=== PATIENT | female | born 1970 ===

== ENCOUNTER 2024-06-10 09:57 | Outpatient (CLI) | payer OTHER, SELFPAY ==
--- NOTE | 2024-06-10 10:09 | MM_ITS ---
WS: [id number] BILATERAL 3D TOMOSYNTHESIS DIGITAL SCREENING MAMMOGRAPHY WITH CAD CLINICAL INFORMATION: SCREENING HISTORY: Screening mammogram. No current complaints. COMPARISON: Baseline TECHNIQUE: Bilateral CC and MLO views. FINDINGS: Scattered fibroglandular densities bilaterally. No suspicious focal mass, asymmetry, calcifications, or architectural distortion. No evidence of malignancy. A few tiny incidental punctate calcifications . MM/[place] [id number] IMPRESSION: BI-RADS: 2-Benign FOLLOW UP: 1 Year Follow-up Recommend return to annual screening mammography.
== END 2024-06-10 09:58 | disposition home or self-care (01) ==
LOC: RAD 10:02
PROVIDERS: PCP Nurse Practitioner Family; Visit Provider Nurse Practitioner Family
DX: Z12.31 Encounter for screening mammogram for malignant neoplasm of breast (principal); R92.323 Mammographic fibroglandular density, bilateral breasts
CPT/HCPCS: 77063; 77067

== ENCOUNTER 2025-09-28 18:42 | Emergency (ER) | payer MEDICAID, SELFPAY ==
[2025-09-28 18:50] VITALS: BP 134/83; PULSE 84; RESP 17; TEMP 36.8; O2SAT 98; BMI 38.2
[2025-09-28 20:06] LABS: Hematocrit 35.5 % (36-47); Hemoglobin 11.10 g/dL (11.27-16.99); Mean Corpuscular HGB Conc 31.3 g/dL (30-55); Mean Corpuscular Hemoglobin 26.3 pg (27-33); Mean Corpuscular Volume 84.1 fl (85-98); Nucleated Red Blood Cells % 0 %; Platelet Count 450 10^3/cmm (157-399); Red Blood Count 4.22 10^6/uL (3.85-5.65); White Blood Count 10.92 10^3/uL (3.29-11.43)
[2025-09-28 20:30] LABS: Alanine Aminotransferase 22 U/L (0-33); Albumin Level 4.1 g/dL (3.5-5.2); Alkaline Phosphatase 86 U/L (35-105); Anion Gap 10.7 (5-19); Aspartate Amino Transferase 16 U/L (0-32); Blood Urea Nitrogen 10 mg/dL (6-20); Calcium 9.3 mg/dL (8.5-10.5); Carbon Dioxide 31 mmol/L (22-29); Chloride 103 mmol/L (98-107); Globulin 3.6 g/dL (1.3-4.6); Glucose 139 mg/dL (65-115); Lactic Sepsis W/Reflex 1.0 mmol/L (0.5-2.2); Lipase 54 U/L (13-60); Osmolality Calculated 293 mOsm/kg (285-295); Potassium 3.7 mmol/L (3.5-5.1); Sodium 141 mmol/L (136-145); Total Protein 7.7 g/dL (6.6-8.7)
--- NOTE | 2025-09-28 20:30 | CTR_ITS ---
PROCEDURE INFORMATION: Exam: CT Abdomen And Pelvis With Contrast Exam date and time: 09/28/2025 10:10 PM Age: 55 years old Clinical indication: Abdominal pain; Prior surgery; Surgery date: 6+ months; Surgery type: Tubal; Additional info: Worsening rlq pain->cyst, appy, stone TECHNIQUE: Imaging protocol: Computed tomography of the abdomen and pelvis with contrast. Radiation optimization: All CT scans at this facility use at least one of these dose optimization techniques: automated exposure control; mA and/or kV adjustment per patient size (includes targeted exams where dose is matched to clinical indication); or iterative reconstruction. Contrast material: OMNI 350; Contrast volume: 100 ml; Contrast route: INTRAVENOUS (IV); COMPARISON: CR XR chest 2V* [id number] 02/25/2019 12:21 PM RADIATION DOSE METRICS: Total DLP (mGy-cm): 993.4 FINDINGS: Liver: Normal. No mass. Gallbladder and biliary ducts: Normal. No calcified stones. No ductal dilation. Pancreas: Normal. No ductal dilation. Spleen: Normal. No splenomegaly. Adrenal glands: Normal. No mass. Kidneys and ureters: No hydronephrosis or delayed nephrogram. Stomach and bowel: Unremarkable. No obstruction. No mucosal thickening. Appendix: Normal appendix. Intraperitoneal space: Unremarkable. No free air. No significant fluid collection. Vasculature: Unremarkable. No abdominal aortic aneurysm. Lymph nodes: Unremarkable. No enlarged lymph nodes. Urinary bladder: Unremarkable as visualized. Reproductive: Multiple uterine fibroids. Right ovarian cyst measures 1.8 cm. No follow-up indicated. Bones/joints: Unremarkable. No acute fracture. Soft tissues: Unremarkable. CT/CT abdomen pelvis w con* [id number] IMPRESSION: 1. Multiple uterine fibroids. 2. No hydronephrosis or delayed nephrogram. 3. Normal appendix. 4. Right ovarian cyst measures 1.8 cm. No follow-up indicated.
--- NOTE | 2025-09-28 20:31 | ECG_ITS ---
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 [email or web address]
[2025-09-28 20:50] VITALS: BP 151/74; PULSE 67; O2SAT 97
[2025-09-28] MEDS: ondansetron 2 mg/ML SDV 2 mL 4 MG IVP (20:52)
[2025-09-28 20:53] VITALS: RESP 16; O2SAT 97
[2025-09-28] MEDS: morphine 4 mg/mL SDV 1 mL IVP (20:53)
--- NOTE | 2025-09-28 21:09 | W.ED.ABDPA2 ---
HPI - Abdominal Pain General: Chief Complaint: Abdominal Pain Stated Complaint: LRQ ABD PAIN Time Seen by Provider: 09/28/25 20:11 History of Present Illness: Patient is a 55-year-old female with past medical history of HLD, diabetes who presents with a two-week history of intermittent, dull, aching pain in the lower right abdomen, which she initially attributed to her menstrual cycle. The pain typically resolves after her period, but this episode has persisted for five days post-menses and is now radiating into her back. She describes the pain as moving and lingering, without any clear precipitating factors. She denies any prior history of similar abdominal or back pain, and has never had her appendix removed or experienced kidney stones. She was evaluated at urgent care with a urine test, which was negative for hematuria or infection. She reports normal appetite, no vomiting, diarrhea, or urinary symptoms. Ibuprofen has not relieved her pain. States her only abdominal surgery was a tubal ligation many years ago. She is not a heavy drinker of alcohol or no heavy NSAID usage, denies any melena. No seeming obvious causes for the worsening of her pain. Related Data Home Medications ?Medication ?Instructions ?Recorded ?Confirmed atorvastatin 40 mg tablet (Lipitor) 40 mg PO DAILY 09/28/25 09/28/25 insulin glargine 100 unit/mL 20 unit SUBCUT DAILY 09/28/25 09/28/25 subcutaneous solution (Lantus U-100 Insulin) insulin lispro 100 unit/mL 10 unit SUBCUT TID 09/28/25 09/28/25 subcutaneous pen (Admelog SoloStar U-100 Insulin lispro) insulin lispro protamine-lispro 5 unit SUBCUT DAILY 09/28/25 09/28/25 100 unit/mL (50-50) subcutaneous pen (Humalog Mix 50-50 KwikPen) lisinopril 20 1 tab PO DAILY 09/28/25 09/28/25 mg-hydrochlorothiazide 12.5 mg tablet semaglutide 2 mg/dose (8 mg/3 mL) mg SUBCUT 09/28/25 09/28/25 subcutaneous pen injector (Ozempic) Previous Rx's ?Medication ?Instructions ?Recorded cephalexin 500 mg capsule 500 mg PO Q6H #20 caps 09/28/25 Allergies Allergy/AdvReac Type Severity Reaction Status Date / Time No Known Allergies Allergy Verified 09/28/25 13:42 Review of Systems General: Reports: 10 or more systems reviewed and unremarkable except in HPI and below GI: Reports: abdominal pain PFSH ED PFSH: Social History Smoking and tobacco/nicotine status: never used tobacco/nicotine Physical Exam Narrative: EXAM NARRATIVE: Well-appearing, vital signs stable on arrival, afebrile, no acute distress. Abdomen soft, nondistended, mild diffuse right-sided abdominal tenderness, negative McBurney and Mike sign, no overlying skin changes, bowel sounds intact, no CVA tenderness. Breathing comfortably on room air, clear bilateral breath sounds, normal sinus rhythm with no murmurs, no leg swelling, 2+ pulses throughout, GCS 15. Course Vital Signs: Vital signs: Vital Signs Temperature 98.3 F 09/28/25 18:50 Pulse Rate 65 09/28/25 22:30 Respiratory Rate 16 09/28/25 20:53 Blood Pressure 159/98 09/28/25 22:30 Pulse Oximetry 98 09/28/25 22:30 Oxygen Delivery Me thod Room Air 09/28/25 22:30 MDM - Abdominal Pain Medical Decision Making -ddx: Appendicitis, ovarian cyst, cystitis, pyelonephritis, nephrolithiasis, ileus, constipation, SBO, enteritis, cholecystitis - Patient overall well-appearing, with 2 weeks of worsening right lower quadrant pain, seemingly happens with her menstrual cycle but has persisted this time, will evaluate with abdominal labs including CT abdomen pelvis, provide pain relief and fluids and reassess. - Patient with reassuring ED evaluation, CT scan with multiple uterine fibroids, ovarian cyst which are possibly contributing to her right lower quadrant pain but importantly no appendicitis, concerning ovarian edema that would be more concerning for torsion especially in setting of her 2 weeks of symptoms and never being exquisite in nature but progressively worsening. Her labs were ultimately reassuring, had no leukocytosis, had a mild anemia but no concerns for active bleeding on exam, no significant electrolyte abnormality, no evidence of LORENE, lactate 1, no LFT elevation. Patient with almost complete resolution of her symptoms after the above medications and so she was able to be discharged home after tolerating p.o. successfully and thought to have a combination of fibroids, cyst in setting of her recent menstrual cycle contributing to her symptoms, we also discussed giving her watch and wait antibiotics for her slightly negative urine but having no symptoms at this time, given 5 days of Keflex if symptoms worsen or persist. She was encouraged to follow-up with OB and was discharged in stable condition with strict return precautions given. Lab Data 09/28/25 19:40 09/28/25 19:40 Labs/Radiology: Radiology Impressions Abdomen/Pelvis CT 09/28/25 20:30 IMPRESSION: 1. Multiple uterine fibroids. 2. No hydronephrosis or delayed nephrogram. 3. Normal appendix. 4. Right ovarian cyst measures 1.8 cm. No follow-up indicated. Laboratory Results WBC 10.92 10^3/uL (3.29-11.43) 09/28/25 19:40 RBC 4.22 10^6/uL (3.85-5.65) 09/28/25 19:40 Hgb 11.10 g/dL (11.27-16.99) L 09/28/25 19:40 Hct 35.5 % (36-47) L 09/28/25 19:40 MCV 84.1 fl (85-98) L 09/28/25 19:40 MCH 26.3 pg (27-33) L 09/28/25 19:40 MCHC 31.3 g/dL (30-55) 09/28/25 19:40 RDW 15.6 % (12.1-15.1) H 09/28/25 19:40 Plt Count 450 10^3/cmm (157-399) H 09/28/25 19:40 MPV 9.4 fL (7.4-10.4) 09/28/25 19:40 Neut % (Auto) 60.8 % 09/28/25 19:40 Lymph % (Auto) 29.1 % 09/28/25 19:40 Vance % (Auto) 6.4 % 09/28/25 19:40 Eos % (Auto) 2.9 % 09/28/25 19:40 Baso % (Auto) 0.5 % 09/28/25 19:40 Neut # (Auto) 6.64 10^3/uL (1.8-7.7) 09/28/25 19:40 Lymph # (Auto) 3.2 10^3/uL (0.8-4.8) 09/28/25 19:40 Vance # (Auto) 0.7 10^3/uL (0.2-0.9) 09/28/25 19:40 Eos # (Auto) 0.3 10^3/uL (0.0-0.8) 09/28/25 19:40 Baso # (Auto) 0.1 10^3/uL (0.0-0.1) 09/28/25 19:40 Nucleated RBC % (auto) 0 % 09/28/25 19:40 Nucleated RBCs # 0.0 /100WBC 09/28/25 19:40 Sodium 141 mmol/L (136-145) 09/28/25 19:40 Potassium 3.7 mmol/L (3.5-5.1) 09/28/25 19:40 Chloride 103 mmol/L (98-107) 09/28/25 19:40 Carbon Dioxide 31 mmol/L (22-29) H 09/28/25 19:40 Anion Gap 10.7 (5-19) 09/28/25 19:40 BUN 10 mg/dL (6-20) 09/28/25 19:40 Creatinine 0.7 mg/dL (0.5-0.9) 09/28/25 19:40 GFR Calculation 87.5 mL/min (90-130) L 09/28/25 19:40 Glucose 139 mg/dL (65-115) H 09/28/25 19:40 Calculated Osmolality 293 mOsm/kg (285-295) 09/28/25 19:40 Lactic Acid 1.0 mmol/L (0.5-2.2) 09/28/25 19:40 Calcium 9.3 mg/dL (8.5-10.5) 09/28/25 19:40 Total Bilirubin 0.2 mg/dL (0.15-1.2) 09/28/25 19:40 AST 16 U/L (0-32) 09/28/25 19:40 ALT 22 U/L (0-33) 09/28/25 19:40 Alkaline Phosphatase 86 U/L (35-105) 09/28/25 19:40 C-Reactive Protein 3.0 mg/L (0.0-4.9) 09/28/25 19:40 Total Protein 7.7 g/dL (6.6-8.7) 09/28/25 19:40 Albumin 4.1 g/dL (3.5-5.2) 09/28/25 19:40 Globulin 3.6 g/dL (1.3-4.6) 09/28/25 19:40 Lipase 54 U/L (13-60) 09/28/25 19:40 Urine Color Yellow (Yellow) 09/28/25 21:06 Urine Appearance Cloudy (CLEAR) A 09/28/25 21:06 Urine pH 8.0 (5-7) A 09/28/25 21:06 Ur Specific Covert 1.028 (1.005-1.030) 09/28/25 21:06 Urine Protein Trace (Negative) A 09/28/25 21:06 Urine Glucose (UA) Negative (Normal) 09/28/25 21: Urine Ketones Negative (Negative) 09/28/25 21:06 Urine Blood Negative (Negative) 09/28/25 21:06 Urine Nitrate Negative (Negative) 09/28/25 21:06 Urine Bilirubin Negative (Negative) 09/28/25 21:06 Urine Urobilinogen 1.0 mg/dL (Negative) 09/28/25 21:06 Ur Leukocyte Esterase 1+ (Negative) A 09/28/25 21:06 Urine RBC 0-2 /hpf (0-2) 09/28/25 21:06 Urine WBC 0-5 /hpf (0-5) 09/28/25 21:06 Ur Squamous Epith Cells 6-10 /hpf (0-5) 09/28/25 21:06 Amorphous Sediment Not Reportable 09/28/25 21:06 Urine Bacteria Trace /hpf (NONE) 09/28/25 21:06 Hyaline Casts 1.65 /lpf 09/28/25 21:06 All radiology interpretation(s) finalized by discharge Discharge Plan Discharge Patient Disposition: Home Clinical Impression: Ovarian cyst, Fibroid Condition: Stable Prescriptions: New cephalexin 500 mg capsule 500 mg PO Q6H Qty: 20 0RF No Action atorvastatin [Lipitor] 40 mg tablet 40 mg PO DAILY insulin glargine [Lantus U-100 Insulin] 100 unit/mL solution 20 unit SUBCUT DAILY lisinopril-hydrochlorothiazide 20-12.5 mg tablet 1 tab PO DAILY insulin lispro [Admelog SoloStar U-100 Insulin] 100 unit/mL insulin pen 10 unit SUBCUT TID Humalog Mix 50-50 KwikPen 100 unit/mL (50-50) insulin pen 5 unit SUBCUT DAILY Ozempic 2 mg/dose (8 mg/3 mL) pen injector SUBCUT Discharge Orders: Discharge ED (Routine); Ordered 09/28/25 Ordered By: Demarco Perez Referrals: Radha Lieberman, CLINICAL REVIEW SPECIALIST [Primary Care Provider, Nurse Practitioner] Patient Instructions: Abdominal Pain (ED), Opioid Safety, Pain Management, Patient Portal & [employer] Instructions Activity Restrictions/Additional Instructions: You were seen for your abdominal pain, you were evaluated with labs and a CT scan which were ultimately reassuring. Your pain might have multiple small causes working together including a moderate size ovarian cyst and fibroids. Your urine also possibly showed the beginnings of an infection as well, if you seem to develop worsening of this pain, fevers, difficulties or burning with urination, start taking the Keflex 500 mg every 6 hours for a total of 5 days, take this with food possible. Make a follow-up appointment with your primary care provider in a week's time to reevaluate your symptoms and to ensure you are improving. Return to the ED with fevers, severe worsening of the pain, vomiting, inability to eat or drink, any other emergent concerns. 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
[2025-09-28 21:13] LABS: Glucose Urine UA Negative (Normal); Nitrate Urine Negative (Negative); Specific Gravity, Urine 1.028 (1.005-1.030)
[2025-09-28 21:30] VITALS: BP 155/88; PULSE 67; O2SAT 96
[2025-09-28 22:00] VITALS: BP 147/94; PULSE 61; O2SAT 96
[2025-09-28] MEDS: iohexol 350 mg/mL 500 mL Btl (per mL) IV (22:13)
[2025-09-28 22:30] VITALS: BP 159/98; PULSE 65; O2SAT 98
== END 2025-09-29 00:07 | disposition home or self-care (01) ==
PROVIDERS: Emergency Medicine; Emergency Provider Student in an Organized Health Care Education/Training Program; PCP Nurse Practitioner Family
DX: N83.201 Unspecified ovarian cyst, right side (principal); D25.9 Leiomyoma of uterus, unspecified; Z79.4 Long term (current) use of insulin
CPT/HCPCS: 36415; 74177; 80053; 81000; 81001; 83605; 83690; 85025; 86140; 87040; 93005; 96361; 96374; 96375; 99285; J2270; J2405; J7030